=== PATIENT | female | born 1960 | race Caucasian/White ===

== ENCOUNTER → 2022-01-05 | Outpatient (REF) | payer OTHER, MEDICAID | LOC: M SFHCDERM 08:03 | PROVIDERS: ATTEND Nurse Practitioner Family | DX: L82.1 Other seborrheic keratosis (principal) ==

== ENCOUNTER 2024-08-12 08:13 | Day surgery (SDC) | payer MEDICARE, BC ==
[~2024-08-12] VITALS: Ht 157.5 cm; Wt 59.4 kg
[2024-08-12] MEDS ORDERED: propofoL 200 MG/20 ML VIAL As Ordered ONE (09:24)
[2024-08-12] MEDS ORDERED: LIDOCAINE 2% 100MG/5ML SDV (FOR ANES.) As Ordered ONE (09:24)
[2024-08-12 10:11] VITALS: TEMP 97.4
[2024-08-12 10:26] VITALS: BP 136/65; O2SAT 96
== END 2024-08-12 10:35 | disposition home or self-care (01) ==
LOC: M OPP 08:13
PROVIDERS: ATTEND Surgery
DX: Z12.11 Encounter for screening for malignant neoplasm of colon (principal); R19.5 Other fecal abnormalities; K64.0 First degree hemorrhoids